=== PATIENT | female | born 1980 | race Caucasian/White ===

== ENCOUNTER 2017-11-05 05:44 | Emergency (ER) | payer SELFPAY, OTHER ==
[2017-11-05] MEDS: ONDANSETRON (ODT) 4 MG TAB ODT ×2 (06:07→07:09)
[2017-11-05] MEDS: HYDROCODONE/APAP (10/325) TAB PO (06:08)
== END 2017-11-05 07:24 | disposition home or self-care (01) ==
LOC: E/R 05:44
DX: R07.89 Other chest pain (principal); E11.9 Type 2 diabetes mellitus without complications
CPT/HCPCS: 71045; 99284-25